=== PATIENT | female | born 1975 | race Two or more races ===

== ENCOUNTER 2018-10-11 09:32 | Day surgery (SDC) | payer OTHER ==
--- NOTE | 2018-10-10 17:00 | History and Physical Report ---
DATE OF ADMISSION: 10/11/2018 REASON FOR ADMISSION: This is a 43-year-old female who is admitted to the hospital to undergo loop electrocautery excision procedure and endocervical curettage. HISTORY OF PRESENT ILLNESS: The patient underwent Pap smear, which revealed low-grade squamous intraepithelial lesion with positive HPV. She then underwent a colposcopy. Endocervical curettage revealed fragment of benign endocervical tissue. No evidence of dysplasia or malignancy. Biopsy at 6 o'clock showed high-grade squamous intraepithelial lesion, TYLER 2 to 3 involving glands. Biopsy at 12 o'clock showed fragments of benign endocervical tissue and no evidence of dysplasia or malignancy. No squamous mucosa present. PAST LEGAL EDITOR HISTORY: Significant for normal spontaneous vaginal deliveries x3. PAST MEDICAL HISTORY: Unremarkable. PAST SURGICAL HISTORY: Unremarkable. MEDICATIONS: None. ALLERGIES: No known drug allergies. PHYSICAL EXAMINATION: VITAL SIGNS: She is afebrile with stable vital signs. HEENT: Normocephalic, atraumatic. CHEST: Clear to auscultation x2. CARDIOVASCULAR: S1 and S2. ABDOMEN: Soft, nontender, nondistended. EXTREMITIES: No cyanosis. No clubbing. PELVIC: Normal external genitalia is noted. Cervix is intact. There is no cervical motion tenderness. There is no uterine tenderness and there is no adnexal tenderness. 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 We discussed with the patient regarding loop electrocautery excision procedure and endocervical curettage. Risks and possible complications including, but not limited to, bleeding, infection, injury to the uterus, bladder, and other vital organs have been explained to her fully. She has been counseled regarding possibility of blood transfusion and risks associated with that have been explained to her fully as well. I discussed with the patient regarding the fact that due to intraoperative findings, we may need to deviate from the planned procedure or cancel the procedure altogether. I discussed with the patient regarding the fact that based on this procedure and the results of this procedure, she may require additional surgeries in the future. We also discussed with the patient regarding the nature of this procedure and the possible impact of this procedure on future pregnancies, the patient does not desire any future pregnancies. Risks, complications, benefits, alternative modes of management have been explained to her in great detail. All her questions have been answered fully. She understands and desires to proceed with the above procedure. Anthony Cloud M.D. DR: PATRICIA JOB#: [id number] CC: BRIDGETTE
[~2018-10-11] VITALS: Ht 167.6 cm; Wt 83.9 kg
[2018-10-11] VITALS (7 sets, daily range): BP systolic 99–138; BP diastolic 54–84
[~2018-10-11 09:32] MED LIST: NKM
[2018-10-11 10:43] LABS: ANION GAP 2 mmol/L (5-15); BASOPHILS % (AUTO) 0.7 % (0.0-2.0); BLOOD UREA NITROGEN 9 mg/dL (7-18); CARBON DIOXIDE 24 MMOL/L (21-32); CHLORIDE 107 MMOL/L (98-107); CREATININE 0.5 MG/DL (0.55-1.30); HEMATOCRIT 42.1 % (37.0-47.0); HEMOGLOBIN 14.3 G/DL (12.0-16.0); LYMPHOCYTES % (AUTO) 31.3 % (20.0-45.0); MEAN CORPUSCULAR VOLUME 89 FL (80-99); MONOCYTES % (AUTO) 6.4 % (1.0-10.0); NEUTROPHILS % (AUTO) 60.7 % (45.0-75.0); PLATELET COUNT 237 K/UL (150-450); POTASSIUM 4.7 MMOL/L (3.5-5.1); RED BLOOD COUNT 4.74 M/UL (4.20-5.40); SODIUM 133 MMOL/L (136-145); WHITE BLOOD COUNT 7.3 K/UL (4.8-10.8)
[2018-10-11] MEDS ORDERED: Lidocaine 1% 10mg/ml/Epi 0.005mg/ml 30ml vial INJ ONE (10:43)
[2018-10-11] MEDS ORDERED: Silver Nitrate Stick TOPIC ONE (10:43)
[2018-10-11] MEDS ORDERED: Ferric Subsulfate (Monsel's Soln) 30ml TOPIC ONE (10:45)
[2018-10-11] MEDS ORDERED: NS Irrig 1000ml IRRIG ONE ×2 (10:47→12:52)
[2018-10-11] MEDS ORDERED: Sterile Water Irrig 1000ml IRRIG ONE (12:30)
[2018-10-11] MEDS ORDERED: LR 1000ml ONE (12:30)
[2018-10-11] MEDS ORDERED: Midazolam 2mg/2ml Inj ONE (12:33)
[2018-10-11] MEDS ORDERED: fentaNYL 100 mcg/2 mL IV ONE (12:33)
[2018-10-11] MEDS ORDERED: Ketorolac 30mg Inj ONE (12:33)
[2018-10-11] MEDS ORDERED: Propofol 200mg/20ml IV ONE (12:33)
[2018-10-11] MEDS ORDERED: Lidocaine 1% MPF 10mg/ml 5ml ONE (12:33)
[2018-10-11] MEDS ORDERED: cefOXitin 1gm Inj ONE (12:40)
--- NOTE | 2018-10-11 13:12 | Pre-Procedure Note/Attestation ---
Pre-Procedure Note/Attestation Complete Prior to Procedure Planned Procedure: not applicable Procedure Narrative: Loop Electrocautery Excision Procedure. ECC Indications for Procedure Pre-Operative Diagnosis: Cervical Dysplasia. TYLER II - TYLER III Attestation I attest that I discussed the nature of the procedure; its benefits; risks and complications; and alternatives (and the risks and benefits of such alternatives ), prior to the procedure, with the patient (or the patient's legal compliance representative dealer). I attest that, if there was a reasonable possibility of needing a blood transfusion, the patient (or the patient's legal compliance representative dealer) was given the [facility] standardized written summary, pursuant to the Saurabh Aditya Blood Safety Act ([place] Health and Safety Code # 1645, as amended). I attest that I re-evaluated the patient just prior to the surgery and that there has been no change in the patient's H&P, except as documented below: Anthony Cloud MD Oct 11, 2018 13:12
--- NOTE | 2018-10-11 13:28 | Anethesia Preoperative Eval ---
Anesthesia Pre-op PMH/ROS General Date of Evaluation: Oct 11, 2018 Time of Evaluation: 12:40 Anesthesiologist: Na ASA Score: ASA 2 Mallampati Score Class I : Soft palate, uvula, fauces, pillars visible Class II: Soft palate, uvula, fauces visible Class III: Soft palate, base of uvula visible Class IV: Only hard plate visible Mallampati Classification: Class II Surgeon: Pedro Luis Diagnosis: Abnormal Pap smear Surgical Procedure: LEEP Anesthesia History: none Family History: no anesthesia problems Allergies: Coded Allergies: No Known Allergies (Unverified , 10/10/18) Medications: see eMAR Patient NPO?: Yes Past Medical History Cardiovascular: Denies: HTN, CAD, LA, valve dz, arrhythmia, other Pulmonary: Denies: asthma, COPD, YIMI, other Gastrointestinal/Genitourinary: Reports: GERD - mild Neurologic/Psychiatric: Denies: dementia, CVA, depression/anxiety, TIA, other Endocrine: Denies: DM, hypothyroidism, steroids, other HEENT: Denies: cataract (L), cataract (R), glaucoma, IROQUOIS (L), IROQUOIS (R), other Hematology/Immune: Denies: anemia, DVT, bleeding disorder, other Musculoskeletal/Integumentary: Denies: OA, RA, DJD, DDD, edema, other Other: other - overweight PMH Narrative: as above PSxH Narrative: none Anesthesia Pre-op Phys. Exam Physician Exam Last Vital Signs Date Time Temp Pulse Resp B/P (MAP) Pulse Ox O2 Delivery O2 Flow Rate FiO2 10/11/18 10:17 97.1 66 18 127/75 100 Room Air Constitutional: NAD Neurologic: CN 2-12 intact Cardiovascular: RRR, no M/R/G Respiratory: CTA Gastrointestinal: S/NT/ND Airway Exam Mallampati Score: Class II MO: full ROM: full Teeth: intact Dentures: no upper, no lower Anesthesia Pre-op A/P Labs Hematology Test 10/11/18 10:15 White Blood Count 7.3 K/UL (4.8-10.8) Red Blood Count 4.74 M/UL (4.20-5.40) Hemoglobin 14.3 G/DL (12.0-16.0) Hematocrit 42.1 % (37.0-47.0) Mean Corpuscular Volume 89 FL (80-99) Mean Corpuscular Hemoglobin 30.2 PG (27.0-31.0) Mean Corpuscular Hemoglobin Concent 34.1 G/DL (32.0-36.0) Red Cell Distribution Width 11.0 % (11.6-14.8) L Platelet Count 237 K/UL (150-450) Mean Platelet Volume 7.5 FL (6.5-10.1) Neutrophils (%) (Auto) 60.7 % (45.0-75.0) Lymphocytes (%) (Auto) 31.3 % (20.0-45.0) Monocytes (%) (Auto) 6.4 % (1.0-10.0) Eosinophils (%) (Auto) 1.0 % (0.0-3.0) Basophils (%) (Auto) 0.7 % (0.0-2.0) Coagulation Test 10/11/18 10:15 Prothrombin Time 10.4 SEC (9.30-11.50) Prothromb Time International Ratio 1.0 (0.9-1.1) Activated Partial Thromboplast Time 25 SEC (23-33) Chemistry Test 10/11/18 10:15 Sodium Level 133 MMOL/L (136-145) L Potassium Level 4.7 MMOL/L (3.5-5.1) Chloride Level 107 MMOL/L (98-107) Carbon Dioxide Level 24 MMOL/L (21-32) Anion Gap 2 mmol/L (5-15) L Blood Urea Nitrogen 9 mg/dL (7-18) Creatinine 0.5 MG/DL (0.55-1.30) L Estimat Glomerular Filtration Rate > 60 mL/min (>60) Glucose Level 112 MG/DL (74-106) H Calcium Level 9.0 MG/DL (8.5-10.1) Urine Test Test 10/11/18 09:55 Urine HCG, Qualitative Negative (NEGATIVE) Risk Assessment & Plan Assessment: ASA 2 Plan: GA with LMA Status Change Before Surgery: No Pre-Antibiotics Drug: Cefoxitin 1gr Given Within 1 Hr of Incision: Yes Time Given: 13:08 Adrian Monzon MD Oct 11, 2018 13:28
[2018-10-11] MEDS ORDERED: LR 1000ml 1,000 ML IVLG SCH (13:29)
[2018-10-11] MEDS ORDERED: Metoclopramide 10mg/2ml Inj IVP PRN (13:30)
[2018-10-11] MEDS ORDERED: Meperidine 50mg/ml Inj(FOR RIGORS ONLY) IV PRN (13:30)
[2018-10-11] MEDS ORDERED: Ketorolac 30mg Inj IV PRN (13:30)
--- NOTE | 2018-10-11 13:38 | Brief Operative Note ---
Immediate Post Operative Note Operative Note Pre-op Diagnosis: Cervical Dysplasia. TYLER II - TYLER III Procedure: LEEP ECC Post-op Diagnosis: same as pre-op Surgeon: Rosa Cloud MD Anesthesia: general Specimen: yes - Cone. ECC Complications: none Condition: stable Fluids: LR Estimated Blood Loss: minimal Drains: none Implant(s) used?: No Anthony Cloud MD Oct 11, 2018 13:38
[2018-10-11] MEDS ORDERED: Tylenol #3 tab (300mg/30mg) ORAL PRN (13:45)
[2018-10-11] MEDS ORDERED: HYDROmorphone 1mg/ml Carpuject SUBQ PRN (13:45)
[2018-10-11] MEDS ORDERED: HYDROcodone/Acetamin 5/325 tab ORAL PRN (13:45)
--- NOTE | 2018-10-11 13:46 | Immediate Post-Op Evaluation ---
Immediate Post-Op Evalulation Immediate Post-Op Evalulation Procedure: LEEP Date of Evaluation: Oct 11, 2018 Time of Evaluation: 13:46 IV Fluids: 1000 Blood Products: none Estimated Blood Loss: min Urinary Output: 150 Blood Pressure Systolic: 105 Blood Pressure Diastolic: 56 Pulse Rate: 72 Respiratory Rate: 20 O2 Sat by Pulse Oximetry: 99 Temperature (Fahrenheit): 97.6 Pain Score (1-10): 1 Nausea: No Vomiting: No Complications none Patient Status: reacts, patent, none Hydration Status: adequate Adrian Monzon MD Oct 11, 2018 13:46
[2018-10-11] MEDS ORDERED: D5 1/2NS 1,000 ML IV SCH (16:00)
--- NOTE | 2018-10-12 06:00 | Operative Note - Dictated ---
DATE OF OPERATION: 10/11/2018 PREOPERATIVE DIAGNOSIS: Cervical dysplasia, TYLER 2 to TYLER 3. POSTOPERATIVE DIAGNOSIS: Cervical dysplasia, TYLER 2 to TYLER 3. PROCEDURE: . SURGEON: Anthony Cloud M.D. ANESTHESIA: General. ESTIMATED BLOOD LOSS: Minimal. COMPLICATIONS: None. CONDITION: Stable. DESCRIPTION OF PROCEDURE: The patient was taken to the operating room. General anesthesia was administered by anesthesiologist. She was put in dorsal lithotomy position. She was prepped and draped in the usual sterile fashion. Red Kevin catheter was placed inside the bladder. Clear urine was obtained. The catheter was then discontinued. A weighted speculum was placed inside the vagina. The anterior lip of the cervix was grasped with a single-tooth tenaculum Red Kevin catheter was placed inside the bladder. Clear urine was obtained. The catheter was then discontinued. speculum was placed inside the vagina. The cervix was visualized. Cervix appears multiparous and enlarged, however, no gross lesions or masses are noted. Lidocaine with epinephrine was injected at 2 o'clock, 4 o'clock, 8 o'clock, and 10 o'clock positions. solution is not available at the hospital. Using appropriate size loop, we proceeded with cone biopsy. A portion of the cervix was resected and the central was tagged at 12 o'clock and sent to pathology. Secondary to size of the cervix, proceeded to do resection of the anterior cervix as well as the posterior cervix. This specimens were also sent to pathology and the cervical curettage was performed and the tissue sent to pathology. At this time, we proceeded to cauterize the resection sites using ball cautery. This was done in a very meticulous fashion in order to destroy any possible in that area. Excellent anesthesia was noted. All the incisions were then removed from the vagina. Sponge and instrument counts were correct x3 at the end of the procedure. The patient tolerated the procedure well and was transferred to recovery room in stable condition. Anthony Cloud M.D. DR: REGLA JOB#: [id number] CC:
--- NOTE | 2018-10-12 14:40 | Cardiology Report ---
APPROVED REPORT EKG Measurement Heart [id number] Sinus bradycardia Cannot rule out Anterior infarct, age undetermined Abnormal ECG
[2018-10-16 10:21] VITALS: BP 116/72
--- NOTE | 2018-10-16 10:22 | 48 Hour Post Anesthesia Eval ---
Post Anesthesia Evaluation Procedure: LEEP Date of Evaluation: Oct 11, 2018 Time of Evaluation: 11:43 Blood Pressure Systolic: 116 0: 72 Pulse Rate: 68 Respiratory Rate: 20 Temperature (Fahrenheit): 97.6 O2 Sat by Pulse Oximetry: 98 Airway: patent Nausea: No Vomiting: No Pain Intensity: 2 Hydration Status: adequate Cardiopulmonary Status: stable Mental Status/LOC: patient returned to baseline Follow-up Care/Observations: n/a Post-Anesthesia Complications: none Follow-up care needed: ready to discharge Adrian Monzon MD Oct 16, 2018 10:21
== END 2018-10-11 15:20 | disposition home or self-care (01) ==
LOC: SUR 09:32
DX: N87.9 Dysplasia of cervix uteri, unspecified (principal); R00.1 Bradycardia, unspecified; K21.9 Gastro-esophageal reflux disease without esophagitis; E66.3 Overweight; Z68.29 Body mass index [BMI] 29.0-29.9, adult
CPT/HCPCS: 36415; 57522; 80048; 81025; 85025; 85610; 85730; 93005; J0694; J1885; J2250; J2405; J2704; J3010; 94003; 94150